=== PATIENT | female | born 1995 | race Caucasian/White ===

== ENCOUNTER 2023-08-28 13:57 | Outpatient (REF) | payer OTHER, SELFPAY ==
[2023-08-28 15:10] LABS: Ferritin 32 ng/mL (10-122); Free T4 (Free Thyroxine) 0.97 ng/dL (0.71-1.85); Thyroid Stimulating Hormone 1.05 uIU/mL (0.32-4.0); Vitamin D 25-OH Total 46.7 ng/mL (>30)
[2023-08-31 17:58] LABS: Zinc 61 mcg/dL (60-130)
== END 2023-08-28 13:58 | disposition home or self-care (01) ==
LOC: HO.LAB 13:57
PROVIDERS: Visit Provider Physician Assistant Medical
DX: L65.9 Nonscarring hair loss, unspecified (principal); E63.9 Nutritional deficiency, unspecified
CPT/HCPCS: 36415; 82306; 82728; 84439; 84443; 84630